=== PATIENT | female | born 1965 | race Caucasian/White ===

== ENCOUNTER 2016-08-18 05:55 | Day surgery (SDC) ==
--- NOTE | 2016-08-10 14:08 | EKG Report ---
Test Performed on : 08/10/2016 2:05:34 PM Test Reason : PAT Blood Pressure : / mmHG Vent. Rate : 062 BPM Atrial Rate : 062 BPM P-R Int : 146 ms QRS Dur : 080 ms QT Int : 452 ms P-R-T Axes : 067 120 085 degrees QTc Int : 458 ms Normal sinus rhythm. Right axis deviation Low voltage QRS Septal infarct , age undetermined Abnormal ECG When compared with ECG of 12-MAR-2016 13:40, Questionable change in QRS axis Nonspecific T wave abnormality no longer evident in Inferior leads Nonspecific T wave abnormality, improved in Lateral leads QT has lengthened Confirmed by Dariusz SOTO, Rebecca Kirby ([id number]) on 08/11/2016 1:44:20 PM
[2016-08-10 14:31] LABS: MANUAL DIFF NEEDED? NO
[2016-08-10 14:40] LABS: BASO% 0.3 % (0.0-0.8); EOS# 0.08 X1000 (0.0-0.7); EOS% 1.3 % (0.0-10.0); HEMOGLOBIN 13.7 g/dL (12.0-16.0); IMM GRAN# 0.02 X1000 (0.0-0.04); IMM GRAN% 0.3 % (0.0-0.5); LYMPH# 1.79 X1000 (1.2-3.4); LYMPH% 28.3 % (20.5-51.1); MCH 31.5 PG (27-31); MCHC 33.4 g/dL (33-37); MCV 94.3 FL (81-99); MONO# 0.36 X1000 (0.11-0.59); MONO% 5.7 % (1.7-9.3); MPV 10.2 FL (7.4-10.4); NEUT% 64.1 % (42.2-75.2); PLT 256 X1000 (130-400); RBC 4.35 XMIL (4.2-5.4)
[2016-08-10 15:22] LABS: AGAP 10; BUN 10 mg/dL (8-22); CALCIUM 8.7 mg/dL (8.8-10.2); CHLORIDE 101 mmol/L (98-107); COSMO 276; SODIUM 138 mmol/L (136-145); TCO2 27 mmol/L (25-35)
[2016-08-18] MEDS ORDERED: LR 1,000 ML ONE (06:32)
[2016-08-18] MEDS ORDERED: CLINDAMYCIN 600 MG/NS 50 ML ONE (06:32)
[2016-08-18] MEDS ORDERED: REGLAN ONE (06:32)
[2016-08-18] MEDS ORDERED: PEPCID ONE (06:32)
[2016-08-18] MEDS ORDERED: SENSORCAINE 0.25%/EPI 1:200,000 ONE (08:59)
[2016-08-18] MEDS ORDERED: DILAUDID ONE (10:11)
--- NOTE | 2016-08-18 10:43 | OPERATIVE NOTE ---
PROCEDURE DATE: 08/18/2016 PREOPERATIVE DIAGNOSIS: Left pretibial mass. POSTOPERATIVE DIAGNOSIS: Left pretibial mass. PROCEDURE PERFORMED: Excision of left pretibial mass. COMPLICATIONS: None. ANESTHESIA: General. ESTIMATED BLOOD LOSS: 5 mL. SPECIMENS: Left pretibial mass. 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 She is concerned about a recurrent mass. MRI did show a small lesion distal to the previous excision site in the pretibial location that was symptomatic and excision was indicated for treatment and diagnosis. OPERATIVE FINDINGS: There is a 2 cm well-circumscribed mass that extended down the level of the periosteum. OPERATIVE NOTE: Risks, benefits, alternatives discussed with the patient, and she consented to the procedure. She was seen in the preoperative area and the surgery site was marked. She was taken to the operating room and placed in supine position. General anesthesia was induced without complication. She received pre-incisional antibiotics. Her left lower extremity was prepped with chlorhexidine solution and draped in the usual fashion. After time-out was performed between nursing, surgical, and anesthesia staff, all agreed on the procedure. We made a longitudinal incision along the area of greater prominence of the mass, after infiltration of local anesthetic, with a 15 blade scalpel. We placed a self retaining retractor and circumferentially excised the lesion. It was down to the level of the periosteum. We irrigated the wound and obtained hemostasis. Using 3-0 Vicryl sutures, we closed the deep dermis and overlying muscle fascia in an interrupted fashion and then closed the skin with interrupted nylon vertical mattress sutures. At the conclusion, all sponge, instrument, and needle counts were correct x2. We applied non- adherent Xeroform gauze and sterile gauze dressing. She tolerated it well and was awakened and transferred to PACU. I spoke with the family. [facility]
[2016-08-18] MEDS ORDERED: XYLOCAINE-MPF 2% ONE (10:51)
[2016-08-18] MEDS ORDERED: ROBINUL ONE (10:51)
[2016-08-18] MEDS ORDERED: ZOFRAN ONE (10:51)
[2016-08-18] MEDS ORDERED: NORCO-7.5 PO PRN (11:22)
[2016-08-18] MEDS ORDERED: ZOFRAN IV PRN (11:22)
[2016-08-18] MEDS ORDERED: NORCO-7.5 ONE (11:29)
[2016-08-18 11:40] VITALS: BP 124/88
[2016-08-18] MEDS ORDERED: DIPRIVAN 1% ONE (12:19)
== END 2016-08-18 12:15 | disposition home or self-care (01) ==
LOC: OPS 05:55
PROVIDERS: ATTEND Surgery
DX: D18.09 Hemangioma of other sites (principal); Z87.891 Personal history of nicotine dependence; K21.9 Gastro-esophageal reflux disease without esophagitis; E78.00 Pure hypercholesterolemia, unspecified; M19.90 Unspecified osteoarthritis, unspecified site; E11.9 Type 2 diabetes mellitus without complications; E03.9 Hypothyroidism, unspecified
CPT/HCPCS: 80048; 82948; 85025; 88304; 88313; 93005; 93010; J1170; J2405; J7120; S0077